=== PATIENT | male | born 1980 | race African-American/Black ===

== ENCOUNTER 2017-04-17 00:45 | Emergency (ER) | payer MEDICAID ==
[~2017-04-17] VITALS: Ht 180.3 cm; Wt 85.0 kg
[~2017-04-17 00:45] MED LIST: INHALER
[2017-04-17 00:50] VITALS: BP 154/77
== END 2017-04-17 01:47 | disposition left against medical advice (07) ==
LOC: ER 00:45
DX: J45.909 Unspecified asthma, uncomplicated (principal); Z53.21 Procedure and treatment not carried out due to patient leaving prior to being seen by health care provider